=== PATIENT | male | born 1975 | race Two or more races ===

== ENCOUNTER 2021-07-25 21:34 | Emergency (ER) | payer SELFPAY ==
[~2021-07-25] VITALS: Ht 162.6 cm; Wt 54.4 kg
[2021-07-25 22:59] LABS: Basophils # (auto) 0 10 ^3/uL (0-0.2); Basophils % (auto) 0.7 % (0.0-2.0); Eosinophils # (auto) 0.1 10 ^3/uL (0-0.8); Eosinophils % (auto) 1.7 % (0.0-7.0); Hematocrit 45.3 % (41.0-53.0); Hemoglobin 15.5 g/dL (13.5-17.5); Lymphocytes # (auto) 0.8 10 ^3/uL (0.4-5.4); Lymphocytes % (auto) 13.2 % (10.0-50.0); Mean Corpuscular Hemoglobin 31.1 pg (28.0-32.0); Mean Corpuscular Hgb Conc. 34.2 g/dL (32.0-36.0); Mean Corpuscular Volume 90.9 fL (80.0-100.0); Monocytes % (auto) 16.8 % (0.0-12.0); Neutrophils % (auto) 67.6 % (37.0-80.0); Red Blood Cells 4.99 10^6/uL (4.5-5.90); Red Cell Distribution Width 13.4 % (11.8-14.3)
[2021-07-25 23:22] LABS: Albumin 3.9 g/dL (3.4-5.0); Calcium 8.5 mg/dL (8.5-10.1); Potassium 3.8 mmol/L (3.5-5.1)
[2021-07-25 23:25] LABS: Bilirubin, Total 0.4 mg/dL (0.2-1.0); Total Protein 7.5 g/dL (6.4-8.2)
[2021-07-26 00:07] VITALS: BP 122/80
[2021-07-26] MEDS ORDERED: PRED20TA2 PO (00:39)
[2021-07-26] MEDS ORDERED: AZIT1POW12 PO (00:39)
[2021-07-26] MEDS ORDERED: ALBU108A5 IN (00:39)
[2021-07-26] MEDS ORDERED: CHOLECALCIFEROL (VITD3) 2,000 UNIT CAP/TAB PO ONE (00:45)
[2021-07-26] MEDS ORDERED: methylPREDNISolone SOD SUCC 125 MG/2 ML VL IM ONE (00:45)
[2021-07-26] MEDS ORDERED: ZINC SULFATE 220mg CAP or TAB PO SCH (10:00)
[2021-07-26] MEDS ORDERED: ASCORBIC ACID 1,000 MG TAB PO SCH (10:00)
== END 2021-07-26 01:12 | disposition home or self-care (01) ==
LOC: EDBD 21:34 → ER 21:34
DX: U07.1 COVID-19 (principal); J06.9 Acute upper respiratory infection, unspecified; J45.909 Unspecified asthma, uncomplicated
CPT/HCPCS: 36415; 71045; 80053; 85025; 87426; 87804; 96372; 99284; J2930

== ENCOUNTER 2021-08-25 16:36 | Emergency (ER) | payer MEDICAID, SELFPAY ==
[~2021-08-25] VITALS: Ht 162.6 cm; Wt 60.3 kg
[~2021-08-25 16:36] MED LIST: ALBU108A5 IN; AZIT1POW12 PO; PRED20TA2 PO
[2021-08-25 16:42] VITALS: BP 124/89
== END 2021-08-25 22:57 | disposition left against medical advice (07) ==
LOC: ER 16:36
DX: K62.89 Other specified diseases of anus and rectum (principal); Z53.21 Procedure and treatment not carried out due to patient leaving prior to being seen by health care provider

== ENCOUNTER 2022-11-22 23:33 | Emergency (ER) | payer MEDICAID ==
[~2022-11-22] VITALS: Ht 162.6 cm; Wt 63.0 kg
[2022-11-23] MEDS ORDERED: methylPREDNISolone SOD SUCC 125 MG/2 ML VL IM ONE (08:00)
[2022-11-23] MEDS ORDERED: IPRATROPIUM BROM 0.5 MG/2.5ML INH SOL NEB ONE (08:00)
[2022-11-23] MEDS ORDERED: ALBUTEROL SULF 2.5 MG/0.5ML(0.5%) NEB SOLN NEB ONE (08:00)
[2022-11-23] MEDS ORDERED: PRED20TA2 PO (08:07)
[2022-11-23] MEDS ORDERED: AZITTAB PO (08:07)
[2022-11-23] MEDS ORDERED: ALBUTEROL MEDNEB 2.5 mg/3ml NEB ONE (08:08)
[2022-11-23] MEDS ORDERED: DIPH25CA66 PO (08:09)
[2022-11-23] MEDS ORDERED: PROM1SOL4 PO (08:09)
[2022-11-23] MEDS ORDERED: ALBU108A5 IN (08:11)
[2022-11-23] MEDS ORDERED: diphenhdrAMINE HCL 50 MG/1 ML VL IM ONE (08:15)
[2022-11-23 08:38] VITALS: BP 105/75
== END 2022-11-23 08:33 | disposition home or self-care (01) ==
LOC: ER 23:33
DX: J45.901 Unspecified asthma with (acute) exacerbation (principal); H10.13 Acute atopic conjunctivitis, bilateral
CPT/HCPCS: 71045; 94640; 96372; 99284; J1200; J2930; J7644

== ENCOUNTER 2023-07-17 21:59 | Emergency (ER) | payer MEDICAID ==
[~2023-07-17] VITALS: Ht 162.6 cm; Wt 85.6 kg
[~2023-07-17 21:59] MED LIST changes: +AZITTAB PO; +DIPH25CA66 PO; +PROM1SOL4 PO
[2023-07-17 22:59] VITALS: BP 118/68; PULSE 88; RESP 18; TEMP 97.6; O2SAT 98
[2023-07-17] MEDS ORDERED: DIPHENOXYLATE W/ATROPINE 2.5 MG TAB PO ONE (23:30)
[2023-07-17] MEDS ORDERED: DIPH2.5T73 PO (23:54)
== END 2023-07-18 00:05 | disposition home or self-care (01) ==
LOC: ER 21:59
DX: R19.7 Diarrhea, unspecified (principal); J45.909 Unspecified asthma, uncomplicated; Z79.899 Other long term (current) drug therapy

== ENCOUNTER 2024-01-19 21:18 | Emergency (ER) | payer MEDICAID, OTHER ==
[~2024-01-19] VITALS: Ht 162.6 cm; Wt 60.4 kg
[2024-01-19 21:18] VITALS: BP 109/78; PULSE 95; RESP 18; O2SAT 98
[~2024-01-19 21:18] MED LIST changes: +DIPH2.5T73 PO
== END 2024-01-20 01:49 | disposition left against medical advice (07) ==
LOC: ER 21:18
DX: R05.9 Cough, unspecified (principal); R09.81 Nasal congestion; Z53.21 Procedure and treatment not carried out due to patient leaving prior to being seen by health care provider